=== PATIENT | female | born 1945 | race Caucasian/White ===

== ENCOUNTER → 2017-12-03 | Outpatient (CLI) | payer MEDICARE | LOC: COL.RAD 11-29 08:15 | DX: M47.22 Other spondylosis with radiculopathy, cervical region (principal); M48.02 Spinal stenosis, cervical region ==

== ENCOUNTER → 2017-12-17 | Outpatient (CLI) | payer MEDICARE | LOC: MHCPAIN 11:57 | DX: G89.29 Other chronic pain (principal); M47.817 Spondylosis without myelopathy or radiculopathy, lumbosacral region; M54.16 Radiculopathy, lumbar region; M53.3 Sacrococcygeal disorders, not elsewhere classified; M50.90 Cervical disc disorder, unspecified, unspecified cervical region | CPT/HCPCS: G0463 ==

== ENCOUNTER 2018-02-06 15:34 | Outpatient (RCR) | payer MEDICARE | END 2018-03-19 08:37 | disposition home or self-care (01) | LOC: WSPT 15:34 | DX: M50.30 Other cervical disc degeneration, unspecified cervical region (principal); M51.16 Intervertebral disc disorders with radiculopathy, lumbar region; G89.29 Other chronic pain; M47.897 Other spondylosis, lumbosacral region; M53.3 Sacrococcygeal disorders, not elsewhere classified | CPT/HCPCS: G8978-GP; G8979-GP; G8980-GP ==

== ENCOUNTER 2018-05-15 05:56 | Day surgery (SDC) | payer MEDICARE ==
[2018-05-15] VITALS (11 sets, daily range): BP systolic 125–164; BP diastolic 57–78; PULSE 56–66; TEMP 98
[~2018-05-15] VITALS: Ht 167.7 cm; Wt 102.5 kg
[2018-05-15 06:52] LABS: MEAN CELL VOLUME 95 fl (80.0-100.0); MEAN CORPUSCULAR HEMOGLOBIN 31 pg (27.0-31.0); MEAN CORPUSCULAR HGB CONC 33 g/dl (33.0-37.0); MEAN PLATELET VOLUME 9.3 fl (7.4-10.4); PLATELET COUNT 264 K/mm3 (130-400); RED BLOOD COUNT 3.54 M/mm3 (4.10-5.30); REDCELL DISTRIBUTION WIDTH-CV 12.7 % (11.5-14.5)
[2018-05-15 06:53] LABS: HEMATOCRIT 33.6 % (37.0-47.0)
[2018-05-15 07:00] LABS: CALCIUM 9.2 mg/dL (8.4-10.2); CREATININE, serum 1.26 mg/dL (0.52-1.25); POTASSIUM 4.6 mmol/L (3.4-5.0)
[2018-05-15 07:04] LABS: PROTHROMBIN TIME 11.5 SECONDS (9.7-12.8)
[2018-05-15] MEDS ORDERED: ASPIRIN 32325 MG/TA1 PO (08:18)
[2018-05-15] MEDS ORDERED: CALCIUM 600MG+D1 TAB PO (08:19)
[2018-05-15] MEDS ORDERED: EPA FISH OIL1 SGL PO ×2 (08:19→08:20)
[2018-05-15] MEDS ORDERED: GLUCOTROL10 MG PO (08:20)
[2018-05-15] MEDS ORDERED: GLUCOSAMINE/CHO1 CA4 PO (08:21)
[2018-05-15] MEDS ORDERED: NORCO 325 MG-51 TAB PO (08:21)
[2018-05-15] MEDS ORDERED: B-12 500 MCG PO (08:24)
[2018-05-15] MEDS ORDERED: PRINIVIL20 MG PO ×2 (08:24→11:08)
[2018-05-15] MEDS ORDERED: TYLENOL 500MG500 MG PO (08:25)
[2018-05-15] MEDS ORDERED: MELATONIN5 M1 PO (08:25)
[2018-05-15] MEDS ORDERED: GLUCOPHAGE1000 MG PO (08:27)
[2018-05-15] MEDS ORDERED: ZOCOR 20MG20 MG PO ×2 (08:27→11:06)
== END 2018-05-15 15:18 | disposition home or self-care (01) ==
LOC: COL.CAR 05:56
PROVIDERS: Internal Medicine Cardiovascular Disease
DX: I25.110 Atherosclerotic heart disease of native coronary artery with unstable angina pectoris (principal); M19.90 Unspecified osteoarthritis, unspecified site; E11.9 Type 2 diabetes mellitus without complications; I10 Essential (primary) hypertension; E78.00 Pure hypercholesterolemia, unspecified; I08.1 Rheumatic disorders of both mitral and tricuspid valves; Z95.5 Presence of coronary angioplasty implant and graft; Z79.82 Long term (current) use of aspirin; Z79.84 Long term (current) use of oral hypoglycemic drugs; Z87.891 Personal history of nicotine dependence; Z83.3 Family history of diabetes mellitus; Z82.49 Family history of ischemic heart disease and other diseases of the circulatory system
CPT/HCPCS: C1769; J1644; J2250; J3010; Q9967